=== PATIENT | male | born 1965 | race Hispanic/Latino ===

== ENCOUNTER 2017-06-08 18:32 | Emergency (ER) | payer OTHER ==
[2017-06-08 18:52] VITALS: RESP 18
[2017-06-08] MEDS ORDERED: Sodium Chloride 0.9% 1,000 ML IV STA (19:09)
--- NOTE | 2017-06-08 19:11 | ED PDOC ---
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 Patient's family states that seizure began with patient's one arm clenched to his side and then patient keeled over, seizing with tonic-clonic activity foaming at the mouth. Patient states that he remembered experiencing some weakness before the seizure episode. Patient confirms that he has no history of seizures. Patient denies any head injury or any other complaint at this time. 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) Other/Comment: chemotherapy every other week - Psychiatric Hx Substance Use: No - Surgical History Other/Comment: nose sx - Anesthesia Hx Anesthesia: Yes Hx Anesthesia Reactions: No Hx Malignant Hyperthermia: No Family/Social History - Physician Review Nursing Documentation Reviewed: Yes Family/Social History: No Known Family HX Smoking Status: Never Smoked Hx Alcohol Use: No Hx Substance Use: No Allergies/Home Meds Allergies/Adverse Reactions: Allergies No Known Allergies Allergy (Unverified 06/08/17 19:00) Home Medications: Home Meds Medication Instructions Recorded Confirmed Unobtainable 06/09/17 06/09/17 Review of Systems - Physician Review All systems were reviewed & negative as marked: Yes - Review of Systems Constitutional: absent: Fevers, Night Sweats Eyes: absent: Vision Changes ENT: absent: Hearing Changes Respiratory: absent: SOB, Cough Cardiovascular: absent: Chest Pain Gastrointestinal: absent: Abdominal Pain Genitourinary Male: absent: Dysuria, Frequency Musculoskeletal: absent: Arthralgias, Back Pain Skin: absent: Rash, Pruritis Neurological: Seizure Endocrine: absent: Diaphoresis Hemo/Lymphatic: absent: Adenopathy Psychiatric: absent: Anxiety, Depression Physical Exam Vital Signs Reviewed: Yes Vital Signs Temp Pulse Resp BP Pulse Ox 06/09/17 03:34 98.4 F 75 18 130/89 96 06/09/17 02:18 98.3 F 85 18 120/77 97 06/09/17 00:00 86 18 06/08/17 23:34 98.5 F 86 18 135/84 97 06/08/17 18:32 98.7 F 133 H 18 147/91 H 69 L Temperature: Afebrile Blood Pressure: Hypertensive Pulse: Tachycardic Appearance: Positive for: Well-Appearing, Non-Toxic, Comfortable Pain Distress: None Mental Status: Positive for: Alert and Oriented X 3 - Systems Exam Head: Present: Atraumatic, Normocephalic Pupils: Present: PERRL Extroacular Muscles: Present: EOMI Conjunctiva: Present: Normal Mouth: Present: Moist Mucous Membranes Neck: Present: Normal Range of Motion Respiratory/Chest: Present: Clear to Auscultation, Good Air Exchange. No: Respiratory Distress, Accessory Muscle Use Cardiovascular: Present: Regular Rate and Rhythm, Normal S1, S2. No: Murmurs Abdomen: No: Tenderness, Distention, Peritoneal Signs Back: Present: Normal Inspection Upper Extremity: Present: Normal Inspection. No: Cyanosis, Edema Lower Extremity: Present: Normal Inspection. No: Edema Neurological: Present: GCS=15, CN II-XII Intact, Speech Normal Skin: Present: Warm, Dry, Normal Color. No: Rashes Psychiatric: Present: Alert, Oriented x 3, Normal Insight, Normal Concentration Medical Decision Making ED Course and Treatment: 06/08/17 19:11 Impression: 51 year old male complaining of a seizure episode prior to arrival. Plan: -- EKG -- Head CT w/o contrast -- Urinalysis -- Labs -- IV Fluids -- Reassess and disposition Progress Notes: 06/08/2017 9:11 CT Head Without Intravenous Contrast Addendum created by Higinio Payton MD on 06/08/2017 9:11 PM Eastern Time ([place] & [place]) Findings are discussed with Bert Davalos , 06/08/2017 9:11 PM EDT. The findings were acknowledged and understood. Initial Report created on 06/08/2017 9:04 PM Eastern Time ([place] & [place]) IMPRESSION: 1. Patchy areas of hypodense edema are identified within the bilateral cerebral hemispheres. This is concerning for underlying lesions. Encephalitis and acute hypertensive encephalopathy are also within the differential, although the edema on the current study appears to be predominantly within the white matter. An MRI of the brain with/without contrast is recommended. 2. No acute intracranial hemorrhage. 3. There is mild soft tissue swelling of the posterior superior scalp. 4. Paranasal sinus disease is noted above. Dictated and Authenticated by: Higinio Payton MD 06/08/2017 9:04 PM Eastern Time ([place] & [place]) 06/08/2017 09:20 Patient's family is requesting to transfer patient to [facility]. Case discussed with oncologist Dr. Murphy, who will coordinate transfer. 06/08/17 22:00 dr murphy spoke to dr lubin to accept case directly to neurology-tele floor. 06/09/17 16:33 discussed risk benefit of transfer with pt. advised risk of deterioration seizuer during transfer. still requests transfer. - Lab Interpretations Lab Results: 06/08/17 20:47 06/08/17 20:47 Lab Results 06/08/17 20:47: PT 12.9 H, INR 1.13 H, APTT 47.0 H 06/08/17 20:47: Sodium 140, Potassium 3.8, Chloride 105, Carbon Dioxide 25, Anion Gap 13, BUN 12, Creatinine 0.7 L, Est GFR ( Amer) > 60, Est GFR ( Non-Af Amer) > 60, Random Glucose 104, Calcium 9.2, Total Bilirubin 0.5, AST 43 , ALT 37, Alkaline Phosphatase 77, Total Protein 6.6, Albumin 3.7, Globulin 2.9 , Albumin/Globulin Ratio 1.3 06/08/17 20:47: WBC 12.3 H, RBC 3.40 L, Hgb 10.7 L, Hct 32.1 L, MCV 94.4, MCH 31.5, MCHC 33.3, RDW 16.5 H, Plt Count 237, MPV 10.4, Gran % 89.2 H, Lymph % ( Auto) 7.0 L, [place] % (Auto) 3.4, Eos % (Auto) 0.3 L, Baso % (Auto) 0.1, Gran # 10.93 H, Lymph # (Auto) 0.9 L, [place] # (Auto) 0.4, Eos # (Auto) 0.0, Baso # (Auto ) 0.01 I have reviewed the lab results: Yes - RAD Interpretation Radiology Orders: 06/08/17 19:00 HEAD W/O CONTRAST [CT] Stat - Medication Orders Current Medication Orders: Discontinued Medications Dexamethasone (Decadron Inj) 10 mg IVP STAT STA Stop: 06/08/17 21:15 Last Admin: 06/08/17 22:37 Dose: 10 mg IVP Administration Document 06/08/17 22:37 RG (Rec: 06/08/17 22:37 RG [id number]) Charges for Administration # of IVP Administrations 1 Sodium Chloride (Sodium Chloride 0.9%) 1,000 mls @ 999 mls/hr IV .Q1H1M STA Stop: 06/08/17 20:09 Last Admin: 06/08/17 20:37 Dose: 999 mls/hr eMAR Start Stop Document 06/08/17 20:37 RG (Rec: 06/08/17 21:37 RG [id number]) Intravenous Solution Start Date 06/08/17 Start Time 20:37 End Date 06/08/17 End time 21:40 Total Infusion Time 63 Levetiracetam (Keppra 500mg Ivpb) 500 mg in 100 mls @ 440 mls/hr IVPB ONCE ONE Stop: 06/08/17 22:28 Last Admin: 06/08/17 22:30 Dose: 440 mls/hr eMAR Start Stop Document 06/08/17 22:30 RG (Rec: 06/08/17 22:36 RG [id number]) Intravenous Solution Start Date 06/08/17 Start Time 22:30 Sodium Chloride (Sodium Chloride 0.9%) 1,000 mls @ 100 mls/hr IV .Q10H KAI Last Admin: 06/08/17 22:25 Dose: 100 mls/hr eMAR Start Stop Document 06/08/17 22:25 RG (Rec: 06/09/17 00:38 RG [id number]) Intravenous Solution Start Date 06/09/17 Start Time 22:25 Pantoprazole Sodium (Protonix Inj) 40 mg IVP STAT STA Stop: 06/08/17 21:15 Last Admin: 06/08/17 22:36 Dose: 40 mg IVP Administration Document 06/08/17 22:36 RG (Rec: 06/08/17 22:37 RG [id number]) Charges for Administration # of IVP Administrations 1 - Scribe Statement The provider has reviewed the documentation as recorded by the Scribe Citlalli Araiza Provider Scribe Attestation: All medical record entries made by the Scribe were at my direction and personally dictated by me. I have reviewed the chart and agree that the record accurately reflects my personal performance of the history, physical exam, medical decision making, and the department course for this patient. I have also personally directed, reviewed, and agree with the discharge instructions and disposition. Disposition/Present on Arrival - Present on Arrival Any Indicators Present on Arrival: No History of DVT/PE: No History of Uncontrolled Diabetes: No Urinary Catheter: No History of Decub. Ulcer: No History Surgical Site Infection Following: None - Disposition Have Diagnosis and Disposition been Completed?: Yes Diagnosis: Seizure, Brain metastasis Disposition: Transfer Overlook Disposition Time: 11:00 Condition: FAIR Referrals: Cassia Avila MD [Primary Care Provider] - Follow up with primary Forms: [employer] (Lithuanian)
[2017-06-08 21:05] LABS: BASO # 0.01 K/mm3 (0.0-2.0); BASO % 0.1 % (0.0-3.0); EOS % 0.3 % (1.5-5.0); GRAN # 10.93 (1.4-6.5); GRAN % 89.2 % (50.0-68.0); HEMOGLOBIN 10.7 g/dL (14.0-18.0); LYMPH # 0.9 (1.2-3.4); MEAN CELL VOLUME 94.4 fl (80.0-105.0); MEAN CORPUSCULAR HEMOGLOBIN 31.5 pg (25.0-35.0); MEAN CORPUSCULAR HGB CONC 33.3 g/dl (31.0-37.0); MEAN PLATELET VOLUME 10.4 fl (7.0-11.0); MONO # 0.4 (0.1-0.6); MONO % 3.4 % (1.0-6.0); RBC 3.4 10^6/uL (3.5-6.1); RED CELL DISTRIBUTION WIDTH 16.5 % (11.5-14.5); WHITE BLOOD COUNT 12.3 10^3/ul (4.5-11.0)
--- NOTE | 2017-06-08 21:05 | CT ---
EXAM: CT Head Without Intravenous Contrast EXAM DATE/TIME: 06/08/2017 7:00 PM CLINICAL HISTORY: The patient age is 51 years old and is male; Signs and symptoms; Other: Seizure Facility exam id and description: Ct heads head w/o contrast TECHNIQUE: Axial computed tomography images of the head/brain without intravenous contrast. All CT scans at this facility use one or more dose reduction techniques, viz.: automated exposure control; ma/kV adjustment per patient size (including targeted exams where dose is matched to indication; i.e. head); or iterative reconstruction technique. Coronal and sagittal reformatted images were created and reviewed. COMPARISON: No relevant prior studies available. FINDINGS: Brain: Patchy areas of hypodense edema are identified within the bilateral cerebral hemispheres. This is concerning for underlying lesions. Encephalitis and acute hypertensive encephalopathy are also within the differential, although the edema on the current study appears to be predominantly within the white matter. No acute intracranial hemorrhage is seen. Midline shift: There is no midline shift. Ventricles: No ventriculomegaly. Bones/joints: The calvarium demonstrates no evidence for a depressed fracture. Soft tissues: There is mild soft tissue swelling of the posterior superior scalp. Sinuses: There is mucosal thickening of the right maxillary sinus. Mastoid air cells: No mastoid effusion. Other: Mild atherosclerotic changes are visualized. IMPRESSION: 1. Patchy areas of hypodense edema are identified within the bilateral cerebral hemispheres. This is concerning for underlying lesions. Encephalitis and acute hypertensive encephalopathy are also within the differential, although the edema on the current study appears to be predominantly within the white matter. An MRI of the brain with/without contrast is recommended. 2. No acute intracranial hemorrhage. 3. There is mild soft tissue swelling of the posterior superior scalp. 4. Paranasal sinus disease is noted above.
[2017-06-08 21:17] LABS: ALB/GLOB RATIO 1.3 (1.1-1.8); ALBUMIN 3.7 g/dL (3.0-4.8); ALT/SGPT 37 U/L (7-56); AST/SGOT 43 U/L (17-59); BLOOD UREA NITROGEN 12 mg/dL (7-21); CALCIUM 9.2 mg/dL (8.4-10.5); GFR AFRICAN-AMERICAN > 60; GFR NON-AFRICAN AMERICAN > 60
[2017-06-08 21:21] LABS: INR 1.13 (0.93-1.08); PROTHROMBIN TIME 12.9 SECONDS (9.4-12.5)
[2017-06-08] MEDS ORDERED: Sodium Chloride 0.9% 1,000 ML IV SCH (22:15)
[2017-06-08] MEDS ORDERED: levETIRAcetam 500mg IVPB 500 MG/100 ML BAG IVPB ONE (22:15)
[2017-06-09 04:59] VITALS: BP 130/89; PULSE 75; TEMP 98.4; O2SAT 96
--- NOTE | 2017-06-09 11:19 | CARD ---
APPROVED REPORT EKG Measurement Heart [id number] <Conclusion> Sinus tachycardia Possible Left atrial enlargement Right bundle branch block Left anterior fascicular block Bifascicular block Abnormal ECG
== END 2017-06-09 03:50 | disposition short-term general hospital (02) ==
LOC: ED 18:32
DX: R56.9 Unspecified convulsions (principal); C79.31 Secondary malignant neoplasm of brain
CPT/HCPCS: 70450; 80053; 85025; 85610; 85730; 93005; 96361; 96374; 96375; 99285; C9113; J1100; J1953; J7040